=== PATIENT | female | born 1995 | race African-American/Black ===

== ENCOUNTER 2024-09-24 18:59 | Emergency (ER) | payer BC, SELFPAY ==
--- NOTE | 2024-09-24 19:14 | ED_ITS ---
HPI - URI/Sore Throat General Chief Complaint: Urogenital-Female Stated Complaint: STD Source: patient, RN notes reviewed and old records reviewed Mode of arrival: ambulatory Limitations: no limitations History of Present Illness HPI Narrative: Patient presents with complaints of positive trich exposure. She declines giving any details. She reports that she is asymptomatic. She is requesting STI testing Related Data Home Medications Medication Instructions Recorded Confirmed azelaic acid 15 % topical gel 1 applic topical DAILY 09/24/24 09/24/24 clindamycin phosphate 1 % lotion 1 applic topical BID 09/24/24 09/24/24 hydrocortisone 2.5 % topical cream applic topical 09/24/24 medroxyprogesterone 150 mg/mL See Rx Instructions .Route 09/24/24 09/24/24 intramuscular syringe .COMPLEX every 3 months sertraline 50 mg tablet 50 mg PO DAILY 09/24/24 09/24/24 tretinoin 0.025 % topical cream 1 applic topical HS 09/24/24 09/24/24 Allergies Allergy/AdvReac Type Severity Reaction Status Date / Time Sulfa (Sulfonamide AdvReac Hives Verified 09/24/24 19:34 Antibiotics) Review of Systems Review of Systems: All systems reviewed & are unremarkable except as noted in HPI and below Constitutional: Constitutional: Reports no additional constitutional complaints ENT: Reports system reviewed and no additional complaints, except as docu mented Cardiovascular: Cardiovascular: Reports no additional cardiovascular complaints Respiratory: Respiratory: Reports no additional respiratory complaints Gastrointestinal: Gastrointestinal: Reports no additional gastrointestinal complaints Genitourinary: Genitourinary: Reports no additional female genitourinary complaints and Reports as per HPI [facility] Comments At the time of my signature, I reviewed and agree with the nursing past medical, surgical, social, and family history. There is no relevant family hi story pertinent to the patient complaint. Exam Const: General: cooperative, no acute distress, alert and awake Orientation/consciousness: oriented to person, oriented to place and oriented to time HENMT: Head: normal to inspection Resp: Effort & Inspection: normal respiratory effort and able to speak in complete sentences Auscultation: clear to auscultation bilaterally, no crackles, no rales, no rhonchi and no wheezes Cardio: Palpation: normal PMI Rate: regular rate Rhythm: regular rhythm Heart sounds: S1 normal heart sound present and S2 normal heart sound present : General: Yes bladder normal to palpation and Yes no CVA tenderness Neuro: General: oriented to person, oriented to place and oriented to time Cranial nerves: Yes CN's II-XII intact bilaterally Psych: Appearance: grossly normal Thought process: Normal thought process present Insight: Good insight present (Psych) Judgement: Good judgement present (Psych) Course Course Level of Care: Express Care Visit Vital Signs Vital signs: Vital Signs Temperature 97.6 F 09/24/24 19:21 Pulse Rate 79 09/24/24 19:21 Respiratory Rate 20 09/24/24 19:21 Blood Pressure 133/90 09/24/24 19:21 Pulse Oximetry 99 09/24/24 19:21 Oxygen Delivery Room Air 09/24/24 19:21 Temperature 97.6 F 09/24/24 19:21 Pulse Rate 79 09/24/24 19:21 Respiratory Rate 20 09/24/24 19:21 Blood Pressure 133/90 09/24/24 19:21 Pulse Oximetry 99 09/24/24 19:21 Oxygen Delivery Room Air 09/24/24 19:21 Reviewed MDM - URI/Sore Throat MDM Narrative Medical decision making narrative: Asymptomatic patient in no distress. Reports positive trich exposure. Treat with Flagyl twice daily for 7 days. Cultures have been sent. Discharge instructions reviewed with patient, as well as provided in writing per nursing staff. The instructions also include specific and strict return/GO TO THE ER as well as f/u information. All questions have been answered, and the patient deny any further questions with discharge and discharge plan. Some parts of this dictation were generated by voice recognition software and may contain typographical and/or grammatical inaccuracies. Differential Diagnosis Differential diagnosis: Likely other (Gonorrhea, chlamydia) Medical Records Attestation: I reviewed the patient's medical records. Discharge Plan Discharge Clinical Impression: Trichomoniasis Patient Disposition: Home, Self-Care Condition: Stable Instructions: Antibiotic Form, Safe Sex Practices (ED) Additional Instructions: Take medications as prescribed. You are being treated presumptively for trichomoniasis today. Your test results are pending. If anything else would come back positive, we will call and inform you and treat you appropriately Prescriptions: New metronidazole 500 mg tablet 500 mg PO Q12H Qty: 14 0RF No Action tretinoin 0.025 % cream 1 applic TOPICAL HS hydrocortisone 2.5 % cream TOPICAL sertraline 50 mg tablet 50 mg PO DAILY clindamycin phosphate 1 % lotion 1 applic TOPICAL BID medroxyprogesterone 150 mg/mL syringe See Rx Instructions .ROUTE .COMPLEX Rx Instructions: 150 mg intramuscularly azelaic acid 15 % gel 1 applic topical DAILY Follow-up/Referrals: PHYSICIAN,MARINE DIESEL MECHANIC [Primary Care Provider] - Time of Disposition: 19:42
[2024-09-24 19:21] VITALS: BP 133/90; PULSE 79; RESP 20; TEMP 36.4; O2SAT 99
[2024-09-26 15:45] LABS: Trichomonas Vag PCR NOT DETECTED (NOT DETECTE)
[2024-09-26 16:12] LABS: Chlamydia trachomatis NOT DETECTED (NOT DETECTE); Neisseria gonorrhoeae PCR NOT DETECTED (NOT DETECTE)
== END 2024-09-24 19:50 | disposition home or self-care (01) ==
PROVIDERS: Emergency Provider Nurse Practitioner Family
DX: A59.9 Trichomoniasis, unspecified (principal); Z11.3 Encounter for screening for infections with a predominantly sexual mode of transmission; Z79.899 Other long term (current) drug therapy
CPT/HCPCS: 87491; 87591; 87661; 99203; G0463